=== PATIENT | male | born 1955 | race Caucasian/White ===

== ENCOUNTER 2019-12-03 09:49 | Observation (INO) ==
[2019-12-03] MEDS ORDERED: NiCARDipine HCL INJ 2.5 MG/ML 10 ML AMP ONE (10:16)
[2019-12-03] MEDS ORDERED: HEPARIN (PORCINE) 1000 UNIT/ML 10 ML (CATH LAB USE ONLY) ONE (10:16)
[2019-12-03] MEDS ORDERED: NITROGLYCERIN/D5W 100MCG/ML 20ML SYR ONE (10:17)
[2019-12-03] MEDS ORDERED: fentaNYL citrate 100 MCG/2 ML VIAL ONE (10:17)
[2019-12-03] MEDS ORDERED: MIDAZOLAM HCL 1 MG/ML 2ML VIAL ONE ×3 (10:17→11:42)
--- NOTE | 2019-12-03 10:24 | History & Physical Bridge Note ---
Date of Service December 03, 2019 History & Physical Bridge Note I have examined the patient, reviewed the History & Physical and in the interval since the performance of the History & Physical I have noted the following changes of clinical significance: no changes noted I have explained the risk benefit and intent of the procedure to the patient and he is willing to proceed.
[2019-12-03] MEDS ORDERED: SODIUM CHLORIDE 0.9% 1000ML 1,000 ML IV SCH ×2 (10:30→13:00)
--- NOTE | 2019-12-03 11:38 | Cardiac Catheterization ---
Date of Service December 03, 2019 Cardiac Cath Report Cardiac Cath Report Procedure: 1. Coronary angiography 2. Left heart catheterization 3. Left ventriculogram History: This is a 64-year-old male patient with a previous stent in the right coronary artery in 2011. He has done well until recently he has had increased shortness of breath with activity and chest discomfort. He underwent an exercise stress echocardiogram that was abnormal. And he was referred for cardiac catheter ization. Procedure summary: After informed consent was obtained the patient was brought to the cardiac catheterization lab. He was prepped and draped in the usual manner for a right transradial approach. Access was obtained to the right radial artery but the guidewire could not be advanced beyond the elbow and therefore the sheath was removed and a hemo-band placed. We then proceeded with a right transfemoral approach using a retrograde cylinder technique. Preformed 5 German diagnostic catheters were utilized for the coronary angiograms. A 5 German pigtail catheter was utilized for left heart pressures and for an LV gram. Following the procedure the patient underwent coronary intervention and then was admitted in stable condition. ACC data: Start time 10:47 AM End time 11:32 AM Opening aortic pressure 110/75 Left ventricular pressure 126/14 Closing aortic pressure 125/80 Sedation 2 mg of intravenous Versed IV fluid 90 cc normal saline Contrast 100 cc Optiray Fluoroscopy time 6.9 minutes Radiation 1139 mGy DAP 11,596 mGy/m Right dominant system AUC score 9 Coronary angiography: Selective injections of the left coronary artery reveal the left main trunk to be widely patent. The left circumflex artery consist of a first large marginal, a second large marginal and a third medium sized marginal branch. There are minor luminal irregularities of the left circumflex artery but it is widely patent. The LAD extends to the apex of the heart. The LAD gives off a large ramus branch and then several smaller diagonal branches distally. The LAD system is widely patent. Selective injections of the right coronary artery revealed to be dominant. In the distal portion of the right coronary artery there is evidence of her previous coronary stent and at the distal portion of this stent and into the grand traverse coronary artery there is restenosis of 80 to 90%. Left ventriculogram: There is mild hypokinesis of the basilar inferior myocardium with the remainder of the myocardium having normal contraction. The estimated left ventricular ejection fraction is around 50 to 55%. The aortic root and ascending aorta have normal morphology and diameter. Mitral valve is competent. Summary: The patient has in-stent restenosis as well as a high-grade stenosis just after the coronary stent in the distal right coronary artery. The remainder the coronary artery is widely patent. Left ventricular systolic function is preserved. Recommendations: The recommendation is for consideration of PCI and additional stent placement in the distal right coronary artery.
[2019-12-03] MEDS ORDERED: CLOPIDOGREL BISULFATE 300 MG TAB ONE (12:45)
[2019-12-03] MEDS ORDERED: NITROGLYCERIN SL 0.4 MG/TAB TAB SL PRN (12:57)
[2019-12-03] MEDS ORDERED: ACETAMINOPHEN 325 MG TAB PO PRN (12:59)
[2019-12-03] MEDS ORDERED: ONDANSETRON INJ 2 MG/ML 2 ML VIAL IV PRN (12:59)
--- NOTE | 2019-12-03 14:38 | Post Operative Brief Note ---
Cardiology Brief Post Op Date of Surgery December 03, 2019 Pre & Post Diagnosis Operation Date: 12/03/19 11:00 <No data on this case meets the specified criteria> Procedure PCI RCA Central Supply Assistant Michael Jasso MD Milling Machine Operator Ankur Estimated Blood Loss 15 Findings Consistent with Post-Op Diagnosis Successful PCI to distal in-stent restenosis with one DOMENICO (2.75 x 26 [place]) overlapping distal aspect of prior stent and extending into R-PDA - Angioplasty of R-posterior AV branch ostium across stent struts. Successful PCI of proximal RCA with single DOMENICO ( 3.5 x 12 [place]; post-dilated with 4.0 NC). Complications none Disposition Disposition: PCU
--- NOTE | 2019-12-03 17:41 | Cardiac Catheterization ---
[facility] Data: Upsetter Setter Up Cardiac Status Clinical evaluation leading to the procedure CAD Presenation: Unstable angina Anginal Classification: CCS III Heart Failure: No Cardiogenic Shock within 24 Hours: No Cardiac Arrest within 24 Hours: No Imaging Studies Past 6 Months: Yes Stress Studies Past 6 Months: No Diagnostic Physicians Name: Michael Jasso MD Status: Elective Closure Device Percutaneous Entry Location: Radial Closure Device: Radial Band Recommendations: PCI without planned CABG PCI Indication: Unstable Angina Lesion Segment Name: distal RCA Culprit Artery: Yes Stenosis Prior to Rx (%): 80 Chronic Total Occlusion: No IVUS: No FFR: No Pre-Procedure PAUL Flow: 3 Previously Treated Lesion: Treated with Stent: Yes In-Stent Restenosis: Yes In- Stent Thrombosis: No Stent Type: DOMENICO Yes Lesion Complexity: High/C Lesion Length (mm): 23 Thrombus Present: No Bifurcation Lesion: Yes Guidewire Across Lesion: Stenosis Post-Procedure (%): 0 Post-Procedure PAUL Flow: 3 Devices(s) Deployed: Yes Yes Intraprocedure Events Significant Disection: No Perforation: No Cardiac Cath Procedure Full Procedure Date December 03, 2019 Pre-Procedure Diagnosis Pre-Procedure Diagnosis: Angina AUC Score AUC Score: 7 Post-Procedure Diagnosis Post-Procedure Diagnosis: Severe CAD and Successful PCI Procedure(s) Performed Procedure(s) Performed: PTCA, Drug Eluting Stent and Femoral Artery Angiography Group Therapy Counselor Michael Jasso MD Biomathematician(s) Ankur Estimated Blood Loss Estimated Blood Loss: 15 Medication(s) Medication(s): Clopidogrel, Fentanyl, Heparin, Lidocaine 1%, Nicardipine, Nitroglycerin and Versed Summary of Findings Indication: Accelerating angina, history of coronary disease post prior DOMENICO to distal RCA Access: 6 Fr right common femoral artery Catheters: JR4 guide Findings: For full details of patient's coronary angiography please cath report dictated by Dr. Vargas. Briefly, patient found to have severe single vessel disease with 80% distal RCA in-stent restenosis. Decision to proceed with PCI. -- PCI -- Antithrombotic therapy: Heparin, clopidogrel Procedure: RCA cannulated with JR4 guide BMW wire passed across lesion into distal vessel Distal RCA lesion predilated with 2.5 compliant balloon Dilated lesion stented with 2.75 x 26 mm [place] drug-eluting stent overlapping distal aspect of prior stent and extending into PDA. 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 Arterial Closure: Angio-Seal Summary: 1. Successful PCI of distal RCA in-stent restenosis with single drug-eluting stent (2.75 x 26 mm Alberto) overlapping distal aspect of prior stent and extending into right PDA. -Right posterior AV branch ostium/stent struts dilated with 2.0 balloon 2. 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 Any exceptions are noted below. [facility] Card Cath Procedure Codes Moderate Sedation Procedure 1: Sedation/Anesthesia: 45826 Mod Sedation by a different physician ;Init15 Min Child Age 5&Up Procedure 2: Sedation/Anesthesia: 55657 Mod Sedation by a different physician;Ea Additional 15 Minutes Angioplasty Procedure 1: Cardiovascular Angioplasty Procedures: 94516 PTCA; ea addl branch of a major cor art RC LC LD Stenting Procedure 1: Cardiovascular Stent Procedures: 70756 Perc transcatheter placement of intracoronary stent(s), with ang PG Care Time/CCT Total # of Minutes Spent Total Time Spent with Patient: Total time spent is greater than 50% in coordination of care (as documented) at patient's floor/unit and/or counseling patient:
--- NOTE | 2019-12-03 17:45 | Electrocardiogram Report ---
Test Reason : Blood Pressure : / mmHG Vent. Rate : 063 BPM Atrial Rate : 063 BPM P-R Int : 200 ms QRS Dur : 086 ms QT Int : 452 ms P-R-T Axes : 062 -09 -30 degrees QTc Int : 462 ms Normal sinus rhythm Inferior infarct , age undetermined Abnormal ECG When compared with ECG of 24-JUL-2018 06:16, Inferior infarct is now Present Nonspecific T wave abnormality no longer evident in Anterolateral leads Confirmed by Michael Oneal ([id number]) on 12/03/2019 5:44:33 PM Referred By: Popeye Clark Confirmed By:Jesus Oneal
[2019-12-04 05:50] LABS: Basophils # (auto) 0.03 K/uL (0-0.2); Basophils % (auto) 0.4 %; Eosinophils # (auto) 0.22 K/uL (0-0.5); Eosinophils % (auto) 3.2 %; Hematocrit (blood only) 44.8 % (42-52); Hemoglobin 15.7 g/dL (14.0-18.0); Immature Granulocytes # (auto) 0.02 K/uL (0.00-0.02); Immature Granulocytes % (auto) 0.3 %; Lymphocytes # (auto) 1.69 K/uL (1.2-3.4); Lymphocytes % (auto) 24.4 %; Mean Corpuscular Hemoglobin 33.6 pg (25-34); Mean Corpuscular Volume 95.9 fL (80-100); Mean Platelet Volume 10.4 fL (7.4-10.4); Monocytes # (auto) 0.69 K/uL (0.11-0.59); Neutrophils # (auto) 4.27 K/uL (1.4-6.5); Neutrophils % (auto) 61.7 %; Platelet Count 153 K/uL (130-400); RDW Coefficient of Variation 13.1 % (11.5-14.5); RDW Standard Deviation 45.6 fL (36.4-46.3); Red Blood Count 4.67 M/uL (4.7-6.1); White Blood Count 6.92 K/uL (4.8-10.8)
[2019-12-04 06:24] LABS: BUN Creatinine Ratio 13.7 (10-20); Calcium 8.6 mg/dl (8.5-10.1); Creatinine Clr Calc Pharmacy 74.5 ml/min; Est GFR (African American) 85.9; Est GFR (Non-African American) 74.1; Potassium 4.1 mmol/L (3.5-5.1)
[2019-12-04 08:19] VITALS: BP 149/89; PULSE 97; TEMP 99.3; O2SAT 94
[2019-12-04] MEDS ORDERED: ENOXAPARIN INJ 40 MG/0.4 ML SYR SQ SCH (09:00)
[2019-12-04] MEDS ORDERED: ISOSORBIDE MONO EXTENDED REL 30 MG TABCR PO SCH (09:00)
[2019-12-04] MEDS ORDERED: CLOPIDOGREL BISULFATE 75 MG TAB PO SCH (09:00)
[2019-12-04] MEDS ORDERED: ASPIRIN 81 MG ECTAB PO SCH (09:00)
--- NOTE | 2019-12-04 09:45 | Discharge Summary ---
Date of Service December 04, 2019 Admission HPI Per Admitting Provider The patient was admitted to undergo cardiac catheterization due to new onset angina. He received coronary stents within the right coronary artery and was admitted for observation overnight. Admission Exam Per Admitting Provider General: no acute distress and stated age Head: normocephalic, no masses, lesions, tenderness or abnormalities Eyes: conjunctiva are pink and non-injected, sclera clear Neck: supple, no adenopathy, no bruits, normal jugular venous pulse, no hepatojugular reflux Chest: normal shape and normal respiratory effort Lungs: clear to auscultation and percussion Cardiac Exam: - regular rate & rhythm, no murmurs gallops or rubs - normal S1, normal S2 Pulses: 2(+) throughout Abdomen: abdomen soft, non-tender, no abnormal masses and no hepatosplenomegaly Musculoskeletal: no gait disturbance, no joint inflammation, no deforming arthritis Extremities: no edema and no cyanosis Neuro: grossly normal exam Principal Diagnosis PCI with coronary stent placement Discharge Exam The exam is unchanged. The cath site is clean and dry without hematoma. Discharge Data Allergies Allergy/AdvReac Type Severity Reaction Status Date / Time Odjznhf-Bbc-Mim Reductase Allergy Muscle Pain Verified 12/03/19 09:25 Inhibitor heparin AdvReac Unknown Edema.LEFT Verified 12/03/19 09:25 LEG SWELLING lisinopril AdvReac Unknown Cough. Verified 12/03/19 09:25 ezetimibe [From Zetia] AdvReac Muscle Pain Verified 12/03/19 09:25 Consultations 12/03/19 13:00 Consult Cardiac Rehabilitation Routine Procedures Performed Operation Date: 12/03/19 11:00 Actual Procedures p Drug Eluting Stent SGl Vessel - Cornell Jasso MD s Cineradiography w/Routine Exam - Tal Vargas DO s Cath, Left with Cors and Vent - Tal Vargas DO s POBA SGL Vessel - Cornell Jasso MD Ordered Studies 12/03/19 06:55 CL Cath Imgs for PACS use only Routine Hospital Course (1) CAD (coronary artery disease): (2) Status post primary angioplasty with coronary stent: The patient was admitted for observation overnight following stent placement. He had an uneventful night and is ready for discharge. Total Time Total Time Spent Total Time Spent (In Minutes): Total time spent less than 30 minutes. Discharge Plan Discharge Items Patient Disposition: Home - Self-Care Reason For Visit: POST PCI Discharge Diagnosis: Coronary artery disease post coronary stent Activity: Resume your previous activity Non-emergency contact: Senior Planning Manager Call non-emergency contact if: you have any medication questions, your symptoms worsen, your pain is not controlled, your pain is worsening, your pain is unusual for you, your pain is concerning for you, you have a fever, your temperature is above 101, your wound has increased redness, your wound has increased drainage and your wound pain has increased Follow-up/Referrals: Felix Welelr, [Primary Care Provider] - Diet: Heart Healthy Addtl Attending Provider Instructions: ACTIVITY RECOMMENDATIONS: Excess manipulation of the wrist should be avoided for the next 24-48 hours. * No lifting over 2 pounds (approximately a 1/2 gallon of milk) with the util ized arm for 24 hours. * No strenuous activity such as bowling or tennis for 3 days. * Keep the site of the procedure covered with a bandage for 24 hours. *You may shower the day after the procedure. Do not take a tub bath or submerge the puncture site in water for the next 3 days. *Do not operate any motorized equipment for 3 days. SPECIAL CARE INSTRUCTIONS: The site may be slightly bruised and sore following your procedure. Should any of the following occur, contact the Dr. who performed your procedure. 1. Redness/inflammation, swelling, chills, or fever, or colored drainage at procedure site within 3-7 days after your procedure. 2. Coldness, discoloration, ongoing numbness, severe pain, or swelling. Expect mild tingling of hand and tenderness at the puncture site for up to three days. If this persists beyond three days, or other symptoms develop, notify the Dr. who performed your procedure. BLEEDING: If the procedure site on your wrist begins to bleed, do not panic 1. Place 1 or 2 fingers firmly just slightly above the insertion site to stop the bleeding. You may be able to feel your pulse as you hold pressure. 2. Lift your finger after 5 minutes to see if the bleeding has stopped. 3. Once the bleeding has stopped, gently wipe the wrist area clean with a bandage. * If the bleeding from your wrist does not stop after 10 minutes, or if there is a large amount of bleeding or spurting, call 911 (do not drive yourself to the hospital). SKIN IRRITATION: * You may experience some redness and/or swelling in the area where radiation was administered. If any skin irritation occurs, please contact your family physician. FOLLOW UP VISIT: Keep any scheduled doctor appointments. Pending Studies at Discharge: No Stand-Alone Forms: [facility] [place], Smoking Cessation Medications and DC Order Prescriptions: New clopidogrel 75 mg Tablet 75 mg PO QAM Qty: 30 RF: 12 Continued aspirin [Aspir-81] 81 mg Tablet,Delayed Release (Dr/Ec) 81 mg PO DAILY RF: 0 omega-3 acid ethyl esters 1 gram Capsule 2 cap PO DAILY RF: 0 magnesium oxide 400 mg (241.3 mg magnesium) Tablet 250 mg PO DAILY RF: 0 nitroglycerin 0.4 mg Tablet, Sublingual 0.4 mg sublingual DAILY PRN (Reason: Chest Pain) RF: 0 isosorbide mononitrate 30 mg Tablet Extended Release 24 Hr 30 mg PO DAILY RF: 0 Discharge Orders: Discharge Order (Routine); Ordered 12/04/19 Ordered By: Tal Vargas Admission Data Admit Date/Time: 12/03/19 12:55 Attending Provider: Tal Vargas Admit Provider: Cornell Jasso Primary Care Provider: Felix Weller
== END 2019-12-04 11:14 | disposition home or self-care (01) ==
LOC: 2S 09:49 → CC 09:49
DX: F17.200 Nicotine dependence, unspecified, uncomplicated; I10 Essential (primary) hypertension; Z88.8 Allergy status to other drugs, medicaments and biological substances; Z86.007 Personal history of in-situ neoplasm of skin; M51.37 Other intervertebral disc degeneration, lumbosacral region; Z95.5 Presence of coronary angioplasty implant and graft; K21.0 Gastro-esophageal reflux disease with esophagitis; I25.110 Atherosclerotic heart disease of native coronary artery with unstable angina pectoris; F12.10 Cannabis abuse, uncomplicated; I25.2 Old myocardial infarction; E78.5 Hyperlipidemia, unspecified

== ENCOUNTER 2025-04-27 05:23 | Observation (INO) ==
--- NOTE | 2025-04-08 12:00 | PAT Medication Instructions ---
Medication Instructions Date of Service April 08, 2025 Home Medications nitroglycerin 0.4 mg sublingual tablet 0.4 mg sublingual .EVERY 5 MIN PRN Chest Pain amlodipine 5 mg tablet 5 mg PO QAM aspirin 81 mg tablet,delayed release 81 mg PO QAM cholecalciferol (vitamin D3) 10 mcg (400 unit) chewable tablet (Vitamin D3) 10 mcg PO DAILY Continue as directed nitroglycerin 0.4 mg sublingual tablet 0.4 mg sublingual .EVERY 5 MIN PRN Chest Pain (if needed) ASK your prescriber and surgeon aspirin 81 mg tablet,delayed release 81 mg PO QAM DO NOT take the morning of surgery cholecalciferol (vitamin D3) 10 mcg (400 unit) chewable tablet (Vitamin D3) 10 mcg PO DAILY Take morning of surgery With a small sip of water, OTHERWISE NOTHING TO EAT OR DRINK AFTER MIDNIGHT: amlodipine 5 mg tablet 5 mg PO QAM Other Notes If you have any questions please call us at [phone] or [phone] or [phone] or [phone]
--- NOTE | 2025-04-13 09:16 | Anesthesiology Consultation ---
Date of Service April 13, 2025 Assessment & Plan (1) Encounter for pre-operative examination: - Infectious disease screening: Per assessment on 04/13/25- No known recent infectious disease contacts or current infectious disease symptoms. - Outpatient joint assessment: Pt currently scheduled for inpatient pathway. If surgeon requests review for outpatient joint pathway, patient is not recommended candidate for outpatient joint program from anesthesia standpoint based on available information - Cardiology visit (10/21/24): "Coronary artery disease with infrequent nitroglycerin use (twice a year) for chest discomfort. No recent increase in nitroglycerin use. Blood pressure improved during the visit. Echocardiogram in July showed mildly enlarged ascending aorta (4.1 cm) with normal heart function. Discussed long-acting nitroglycerin; patient prefers current regimen and will report any increase in use.. Continue amlodipine.. Continue baby aspirin.. Monitor and report nitroglycerin use.. Hypertension managed with amlodipine. Blood pressure improved to 140/72 during the visit.. Patient is generally well and active within limits, engaging in activities such as plowing and shoveling." - PCP visit (02/09/25): "No chest pain for him but with SOB will do workup to make sure he is cleared for surgery. Check CT considering pain and sent to surgery for hernia. I do not feel this should get in the way of his cataract surgery though. Addendum: Testing for acute problems clear. Pt Cleared for planned procedure with low likelihood of elmer-operative complications." > Subsequent cataracts surgery [facility] without issue per patient. Chart Review Chart Review: Acceptable Risk for Surgery and Patient seen in Pre Admission Testing Teaching & Discussion Pre-Anesthesia Teaching/Discussion Notes: Instructed NPO after midnight before surgery,except medications with 15 cc of water. Medication instructions provided according to the PAT guidelines. History Surgery Operation Date: 04/27/25 10:40 Proposed Procedures p Right Total Knee Arthroplasty - Yuval Garcia MD Height/Weight Height: 5 ft 7 in Weight: 102.9 kg Allergies Allergy/AdvReac Type Severity Reaction Status Date / Time Gostzyi-VJH-FeF Reductase Allergy Intermediate Muscle Pain Verified 04/06/25 10:22 Inhibitor [Dctpdzh-Xpn-Xhv Reductase Inhibitor] ezetimibe [From Zetia] AdvReac Intermediate Muscle Pain Verified 04/06/25 10:22 heparin AdvReac Unknown Edema, Verified 04/12/25 10:19 left leg swelling lisinopril AdvReac Unknown Cough Verified 04/12/25 10:19 Medications Home Medications Medication Instructions Recorded Confirmed Last Taken nitroglycerin 0.4 mg sublingual 0.4 mg sublingual .EVERY 5 MIN PRN 12/03/19 04/06/25 Unknown tablet Chest Pain amlodipine 5 mg tablet 5 mg PO QAM 09/13/23 04/06/25 Unknown aspirin 81 mg tablet,delayed 81 mg PO QAM 09/13/23 04/06/25 Unknown release cholecalciferol (vitamin D3) 10 10 mcg PO DAILY 04/06/25 04/06/25 Unknown mcg (400 unit) chewable tablet (Vitamin D3) Past Medical History Medical History (Updated 04/13/25 @ 09:45 by Almita Arimjo) CAD (coronary artery disease) 2011- PCI RCA with DOMENICO 2019- PCI of dRCA with DOMENICO overlapping the distal aspect of prior stent and e xtending into right PDA + PCI pRCA with DOMENICO Follows with [facility] GERD (gastroesophageal reflux disease) HTN (hypertension) Hx of acute myocardial infarction 2011 Hyperlipidemia Osteoarthritis Spinal stenosis Statin intolerance Exercise / Class Metabolic Activity III < 4 Walking/Shop/Light housework Past Family History Family History Mother Coronary heart disease Father Alcohol abuse Grandfather , at 65 Myocardial infarction Brother Cancer Brother , " in assisted No problems noted. Other No pertinent family history Past Surgical History Surgical History H/O heart artery stent History of adenoidectomy History of cardiac cath 2011- PCI RCA with DOMENICO 2019- PCI of dRCA with DOMENICO overlapping the distal aspect of prior stent and extending into right PDA + PCI pRCA with DOMENICO History of cataract surgery R/L History of colonoscopy History of tonsillectomy History of tooth extraction Past Anesthesia History No Hx of Anesthesia Complications and No Family Hx of Anesthesia Complications History of PONV No Hx of PONV and No Hx of Motion Sickness Social History Smoking Status: Former smoker tobacco type: cigarettes Do You Dip or Chew Tobacco: No Smoking End Date: 12/2024 Hx Alcohol Use: Yes (Hx Alcohol abuse listed per records) Alcohol type: hard liquor alcohol intake frequency: a few times a week Hx Substance Use: Yes substance use type: marijuana (few times per week ("not card")) Review of Systems Patient denies chest pain, shortness of breath, dyspnea on exertion, fever, chills, cough, wheezing, palpitations. Physical Exam Vital Signs BP 134/73 P 60 TEMP 97.9 SP02 95%RA RESP 16 Physical Full cervical extension range of motion. Full TMJ range of motion. TMD > 3.5 finger breaths Mallampati Score III Dentition: lower 6 teeth remaining, upper full plate, lower partial Lungs: clear throughout to auscultation Cardiac: regular rate and rhythm, no murmurs noted Spine: normal Carotid arteries: negative bruit Extremities: no LE edema Lab Results Anesthesia Preop Results Results Anesthesia Widget: WBC 7.03 K/ul (4.8-10.8) 04/13/25 Hgb 15.1 g/dl (14.0-18.0) 04/13/25 Hct 42.5 % (42.0-52.0) 04/13/25 Plt 201 K/uL (130-400) 04/13/25 Na 138 mmol/L (136-145) 04/13/25 K 4.4 mmol/L (3.5-5.1) 04/13/25 Cl 105 mmol/L (98-107) 04/13/25 CO2 25 mmol/L (21-32) 04/13/25 BUN 12 mg/dl (6-23) 04/13/25 Creat 1.10 mg/dl (0.6-1.4) 04/13/25 Glucose Level 101 mg/dl (70-99(Fasting)) H 04/13/25 PT 11.2 Seconds (9.0-12.0) 04/13/25 PTT 29 Seconds (21-31) 04/13/25 INR 1.0 (0.9-1.1) 04/13/25 Blood Type B Positive 04/13/25 Antibody Screen NEGATIVE 04/13/25 Testing Electrocardiogram Date: 10/21/24 Sinus rhythm. PACs. 77 bpm. Nonspecific T wave abnormality. Chest X-Ray Date: 02/09/25 No acute focal consolidation. Pulmonary edema. No pneumothorax or pleural effusion observed. Unremarkable cardiomediastinal silhouette. No acute osseous abnormality. Echocardiogram Date: 07/09/24 LVEF 55-59%. LV wall motion is normal. Mildly increased concentric LV wall thickness. Moderate AR. Mildly enlarged aortic root (4.1 cm. Proximal ascending thoracic aorta is mildly enlarged, 4.1 cm. No significant interval change compared to prior study dated 05/22/2023 per report. Stress Test Date: 05/15/21 Type: exercise The stress echo demonstrates a fixed wall motion abnormality without ischemia. Exercise capacity is average. Blood pressure response to exercise was hypertensive. Stress EKG showed no evidence of ischemia. Occasional PVCs noted with stress. The inferior and inferior septal wall is hypokinetic at the base and mid level at rest and does not change with stress. All other marcano contract normally at stress and rest. 7.5 METS. 85% MPHR. LVEF 50-54%. Mildly increased concentric LV wall thickness. Mildly enlarged aortic root. Mild to moderate AI. Cardiac Catheterization Date: 12/03/19 Summary: 1. Successful PCI of distal RCA in-stent restenosis with single drug-eluting stent (2.75 x 26 mm Alberto) overlapping distal aspect of prior stent and extending into right PDA. -Right posterior AV branch ostium/stent struts dilated with 2.0 balloon 2. 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
[2025-04-27] MEDS: ACETAMINOPHEN 500 MG TAB PO SCH ×2 (05:42→10:45)
[2025-04-27] MEDS: dexAMETHasone**PF** 10 MG/ML VIAL IV SCH (05:42)
[2025-04-27] MEDS: CeleBREX 200 MG CAP PO SCH (05:43)
[2025-04-27] MEDS: FAMOTIDINE 20 MG TAB PO SCH (05:43)
[2025-04-27] MEDS: METOCLOPRAMIDE HCL 10 MG TABLET PO SCH (05:44)
[2025-04-27] MEDS: LR 60ML/HR IV SCH (05:44)
[2025-04-27] MEDS: LR 500ML BOLUS, THEN 15ML/HR IV SCH (05:45)
[2025-04-27] MEDS ORDERED: LIDOCAINE 2% 2 ML VIAL/AMP(20MG/ML) INFIL ONE (06:10)
[2025-04-27] MEDS ORDERED: fentaNYL citrate PF 100 MCG/2 ML VIAL ONE ×2 (06:10→07:34)
[2025-04-27] MEDS ORDERED: MIDAZOLAM HCL 1 MG/ML 2ML VIAL ONE (06:10)
[2025-04-27] MEDS ORDERED: PROPOFOL IV EMULSION 10 MG/ML 20 ML VIAL IV ONE (06:11)
[2025-04-27] MEDS ORDERED: ONDANSETRON INJ 2 MG/ML 2 ML VIAL ONE (06:11)
[2025-04-27] MEDS ORDERED: ROPIVACAINE 0.5% 5 MG/ML 30 ML VIAL ONE (06:22)
[2025-04-27] MEDS ORDERED: BUPIVACAINE 0.5 % 5 MG/1 ML PF 10ML VIAL ONE (06:22)
--- NOTE | 2025-04-27 06:46 | History & Physical Bridge Note ---
Date of Service April 27, 2025 History & Physical Bridge Note I have examined the patient, reviewed the History & Physical and in the interval since the performance of the History & Physical I have noted the following changes of clinical significance: no changes noted
[2025-04-27] MEDS: ceFAZolin 2000MG 2,000 MG/15 ML SYR IV SCH ×2 (07:15→14:14)
[2025-04-27] MEDS ORDERED: HYDROmorphone INJ 2 MG/ML SYR/VIAL ONE (07:18)
[2025-04-27] MEDS ORDERED: METOCLOPRAMIDE HCL INJ 5 MG/ML 2 ML VIAL ONE (07:24)
[2025-04-27] MEDS: ORTHO JOINT ANESTHETIC ONE (07:41)
[2025-04-27] MEDS: ROPIV 0.5% 246mg, Ketorolac 30mg, EPINEPHrine 0.5mg in NSS INFIL SCH (07:41)
[2025-04-27] MEDS ORDERED: fentaNYL citrate PF 100 MCG/2 ML VIAL IV PRN (07:43)
[2025-04-27] MEDS ORDERED: ATROPINE SULFATE 0.1 MG/ML 10ML SYR IV PRN (07:43)
[2025-04-27] MEDS ORDERED: ePHEDrine sulfate 50 MG/ML AMP IV PRN (07:43)
[2025-04-27] MEDS ORDERED: HYDROmorphone INJ 2 MG/ML SYR/VIAL IV PRN (07:43)
[2025-04-27] MEDS ORDERED: PROMETHAZINE HCL 6.25 MG in SODIUM CHLORIDE 0.9% 50 ML IV PRN (07:43)
[2025-04-27] MEDS ORDERED: ONDANSETRON INJ 2 MG/ML 2 ML VIAL IV PRN ×2 (07:43→10:06)
[2025-04-27] MEDS: TRANEXAMIC ACID 1,000 MG **IV Intra-op IV SCH (08:06)
--- NOTE | 2025-04-27 09:06 | Operative Report ---
PG Post Operative Report Pre & Post Diagnosis Operation Date: 04/27/25 07:00 Pre-Op Diagnosis: Osteoarthritis Knee Right Post-Op Diagnosis: Osteoarthritis Knee Right I identified the patient and participated in the time-out.: Yes Procedure Operation Date: 04/27/25 07:00 Actual Procedures p Right Total Knee Arthroplasty(Right) - Yuval Garcia MD Surgeon Yuval Garcia MD Green Chain Offbearer Faheem Grace PA-C Estimated Blood Loss 50 Findings Consistent with Post-Op Diagnosis Specimens Right knee sent for pathology. Anesthesia Type General Regional Complications none Disposition Accompanied Patient To Recovery: No Indications Patient is a 70-year-old gentleman with a long history of bilateral knee pain discomfort right side greater than left. Been through extensive conservative treatment which became less successful over time. X-rays show advanced bilateral knee DJD. He elected proceed with right total knee arthroplasty. Description of Procedure Operative implants consist of: 1. Biomet Vanguard size 67.5 right posterior stabilized femoral component. 2. Biomet size 75 tibial tray. 3. 12 mm posterior stabilized polyethylene insert. 4. 31 x 8 all poly patella. The patient was taken to the op room, identified, placed on the operating table in the supine position. All contact areas were appropriately padded. IV antibiotics were provided by the anesthesia team. A spinal anesthetic was attempted in the holding area but unsuccessful. He did have an adductor canal block. A general anesthetic was implemented. A right thigh tourniquet was then placed to the right lower extremity was then prepped and draped in usual sterile fashion. The right leg was elevated and exsanguinated with use of an Esmarch and a turn was placed at 300 mmHg. An anterior approach of the right knee was then performed to longitudinal incision centered over the patella. Sharp dissection was carried through subcutaneous tissue down the extensor mechanism. A medial parapatellar arthrotomy incision was then made. Some subperiosteal dissection was carried out medially. The fat pad was resected from the patella tendon. The lateral patellofemoral ligament was released. The patella was subluxated laterally and the knee was flexed. The osteophytes taken off distal femur. The ACL and PCL were then released from distal femur the tibia subluxated anteriorly. The external treatment LYMErix then placed on the anterior face the tibia and adjusted 14 mm medially. The proximal tibial cut was made to remove about 2 mm of bone from medial side. Some osteophytes taken off medially. The tibia was then sized to a size 75. Attention drawn the femur. The distal femur was then with a sharp drill. Intramedullary canal was suction. A right 6 degree valgus cutting guide was placed. The distal femoral cutting block was pinned in place. This femoral cut was made taking additional 3 mm of bone off distal femur. The femur was then sized to a size 67.5. The AP cutting block was pinned parallel to the epicondylar axis which was 4 degrees of external rotation. The anterior cut, anterior chamfer, posterior cut, posterior chamfer cuts were made. The box cutting guide was placed and just slightly lateral and the box cut was made. The knee was flexed. The remnants of the medial and lateral menisci were excised. The osteophytes taken off the posterior aspect of femur. A trial femoral component was placed. The tibial tray was pinned in Kell external rotation and the drill and stem points were used. Defect in proximal tibia for the tibial tray. Knee was then trialed and the 12 mm insert fit most appropriately. Attention drawn the patella. The patella was cleaned of all soft tissues. Patella thickness measured 22 mm in thickness was cut down to 13. Was sized to a size 31 patella. The lug holes were drilled for 31 patella. The lateral osteophytes removed. Patella button was placed. Knee was taken through range of motion and the patella tracked ellen spike with no thumbs test. Attention jointer placed in permanent components. NuPrep all trial components were removed. Bone plug was placed in the distal femur limit blood loss. A double batch [place] G cement was mixed. A Biomet Vanguard size 67.5 right posterior stabilized femoral component, size 75 tibial tray, a 12 mm posterior stabilized polyethylene insert, and a 31 x 8 all poly patella then cemented in place. The knee was brought out into full extension till cement hardened. Final cement check was then performed. The pericapsular tissues were injected with total of 100 cc of Ortho mix. Patient did receive 1 g tranexamic acid. The tourniquet was then let down for final tourniquet time 62 minutes. Hemostasis surgeries electrocautery. Extensor Meclomen closed with combination 1 PDS suture #1 Vicryl suture in a [id number] fashion. Extensor mechanism was checked and found to be intact. Subcutaneous tissue was then closed with 2 Dexon suture in a buried interrupted fashion the skin was closed skin gurjit. Leg was then cleaned and dried and a sterile dressing with Xeroform, 4 fours, sterile cast padding, Rivas bandage were applied. The patient was then brought out of general anesthesia. Patient then transferred to the recovery room in stable condition. Patient tolerated procedure well and there are no complications. Faheem Grace, my physician title assistant, was present for the entire procedure. His assistance was required for proper patient positioning, prepping and draping, surgical exposure, retraction, perform the technical details of the operation, placement of the hardware, closure of the incision site, and placement of postoperative sterile bandage. I attest to the content of the Intraoperative Record and any orders documented therein. Any exceptions are noted below.
--- NOTE | 2025-04-27 09:31 | XRay Report ---
XR knee RT 1 or 2V routine CLINICAL HISTORY: Surgical Post Op COMPARISON: 04/27/2025 FINDINGS: Right knee prosthesis shows no hardware complication. There is expected soft tissue gas. S kin gurjit are present. IMPRESSION: Unremarkable postoperative exam. ACT 112: Negative or not required by law. Electronically signed by: Brodie Faye M.D. 04/27/2025 9:30 AM
[2025-04-27] MEDS ORDERED: oxyCODONE HCL IR 5 MG TAB (IMMEDIATE RELEASE) PO PRN (10:06)
[2025-04-27] MEDS ORDERED: HYDROmorphone INJ 0.5 MG/0.5 ML SYR IV PRN (10:06)
[2025-04-27] MEDS ORDERED: METOCLOPRAMIDE HCL INJ 5 MG/ML 2 ML VIAL IV PRN (10:06)
[2025-04-27] MEDS ORDERED: bisacodyL 10 MG SUPP PR PRN (10:06)
[2025-04-27] MEDS ORDERED: MAGNESIUM HYDROXIDE SUSP 30 ML UDC PO PRN (10:06)
[2025-04-27] MEDS ORDERED: ALUMINUM/MAGNESIUM SUSP 30 ML UDC PO PRN (10:06)
[2025-04-27] MEDS ORDERED: NITROGLYCERIN SL 0.4 MG/TAB TAB SL PRN (10:06)
[2025-04-27] MEDS ORDERED: NALOXONE HCL 0.4 MG/1 ML VIAL/CARP IV PRN (10:06)
[2025-04-27] MEDS ORDERED: SENNA 8.6 MG TAB PO SCH (10:06)
--- NOTE | 2025-04-27 10:31 | Anesthesiology Progress Note ---
Date of Service April 27, 2025 Anesthesia Post Procedure Vital Signs Vital Signs: Temp Pulse Pulse Resp BP Pulse Ox O2 Del Method 04/27/25 10:08 36.3 C L 74 16 128/70 94 Nasal Cannula 04/27/25 10:08 Nasal Cannula 04/27/25 09:46 81 12 141/84 H 94 Nasal Cannula 04/27/25 09:40 36.6 C 71 12 121/68 93 Nasal Cannula 04/27/25 09:30 80 19 153/80 H 93 Oxymask 04/27/25 09:20 80 14 151/80 H 94 Oxymask 04/27/25 09:10 82 13 126/67 94 Oxymask 04/27/25 09:04 36.0 C L 83 19 168/78 H 89 L Oxymask 04/27/25 05:37 36.7 C 81 20 145/95 H 95 Room Air O2 Flow Rate 04/27/25 10:08 4 04/27/25 10:08 4 04/27/25 09:46 4 04/27/25 09:40 2 04/27/25 09:30 4 04/27/25 09:20 4 04/27/25 09:10 4 04/27/25 09:04 4 04/27/25 05:37 Transfer of Care Handoff Completed per policy Notes Mental Status: alert / awake / arousable and participated in evaluation Patient Amnestic to Procedure: Yes Nausea / Vomiting: adequately controlled Pain: adequately controlled Airway Patency, RR, SpO2: stable & adequate BP & HR: stable & adequate Hydration State: stable & adequate Anesthetic Complications: no major complications apparent
[2025-04-27] MEDS: SODIUM CHLORIDE 0.9% 1,000 ML IV SCH (10:43)
[2025-04-27] MEDS: KETOROLAC TROMETHAMINE 15 MG/ML VIAL IV SCH (10:46)
[2025-04-27] MEDS: DOCUSATE SODIUM 100 MG CAP PO SCH (10:46)
[2025-04-27] MEDS: TAMSULOSIN HCL 0.4 MG CAP PO SCH (10:47)
[2025-04-27] MEDS: MULTIVITAMIN TAB PO SCH (10:47)
[2025-04-27] MEDS: CHOLECALCIFEROL 10 MCG (400 UNITS) TAB PO SCH (10:47)
[2025-04-27] MEDS: amLODIPine BESYLATE 5 MG TAB PO SCH (11:21)
[2025-04-27] MEDS: ASPIRIN 81 MG ECTAB PO SCH (11:21)
[2025-04-27] MEDS: TRANEXAMIC ACID / 0.7% NACL 1,000 MG/100 ML BAG IV SCH (14:14)
[2025-04-27] MEDS: ASCORBIC ACID 500 MG TAB PO SCH (17:10)
[2025-04-27] MEDS: SENNA 8.6 MG TAB PO SCH (22:13)
[2025-04-28 06:35] LABS: Hematocrit (blood only) 39.4 % (42.0-52.0); Hemoglobin 13.8 g/dl (14.0-18.0); Mean Corpuscular Volume 94.3 fL (80.0-100.0); Mean Platelet Volume 10.5 fL (9.4-12.4); Platelet Count 199 K/uL (130-400); RDW Coefficient of Variation 13.4 % (11.5-14.5); RDW Standard Deviation 46.5 fL (36.4-46.3); Red Blood Count 4.18 M/uL (4.70-6.10); White Blood Count 16.76 K/ul (4.8-10.8)
[2025-04-28 07:02] LABS: BUN Creatinine Ratio 17.5 (10-20); Calcium 8.8 mg/dl (8.6-10.3); Creatinine Clr Calc Pharmacy 61.8 ml/min; Potassium 4.7 mmol/L (3.5-5.1)
[2025-04-28 07:13] VITALS: BP 122/80; PULSE 79; RESP 16; TEMP 97.7; O2SAT 93
[2025-04-28] MEDS: dexAMETHasone 10 MG in SYRINGE 0 ML IV SCH (08:50)
--- NOTE | 2025-04-28 10:05 | Orthopedic Progress Note ---
Date of Service April 28, 2025 Assessment & Plan (1) Status post right knee replacement: Plan: 70-year-old gentleman postop day 1 from right knee replacement doing pretty well. Pain is controlled. He is neurologically intact. Hoping to go home today. Plan: 1. DVT prophylaxis including thigh-high teds, SCDs, aspirin twice a day. 2. PT/OT. Weight-bear as tolerated. Right total knee protocol. 3. Pain control. Doing well with current pain regimen. 4. Disposition. Plan to add discharge to home with some home health after therapy today. (2) HTN (hypertension): (3) HLD (hyperlipidemia): (4) Tobacco abuse: (5) Alcohol abuse: (6) CAD (coronary artery disease): Admission and Anticipated Discharge Date Admission Date: April 27, 2025 Subjective 70-year-old gentleman postop day 1 from right knee replacement. Is doing pretty well. Pains been controlled. Had a reasonable night. No chest pain or shortness of breath. Hoping to go home today. Physical Exam Physical Exam: Physical nation is a pleasant middle-age male. He is sitting up in his bedside chair looks comfortable. Examination of the right leg reveals the dressing be clean dry and intact. He can dorsiflex and plantarflex his foot appropriately. He can do a good straight leg raise. No drainage on the dressing. Respiratory: normal respiratory effort, lungs clear to auscultation Cardiovascular: RRR, no murmur, no edema Gastrointestinal (Abdomen): normal bowel sounds, soft, nontender, no hepatosplenomegaly Results & Data Vital Signs (Past 12 Hours) Vital Signs Temp Pulse Resp BP BP Pulse Ox O2 Del Method 04/28/25 07:42 Room Air 04/28/25 07:10 36.5 C 79 16 122/80 93 Room Air 04/28/25 02:56 36.8 C 77 18 137/70 94 Room Air 04/27/25 22:57 87 165/73 H 04/27/25 22:53 36.6 C 94 H 18 169/74 H 96 Room Air Laboratory Results Hemoglobin is 13.8. Hematocrit is 39.4. Electrolytes are stable.
== END 2025-04-28 10:57 | disposition home health service (06) ==
LOC: 3E 05:23 → ASU 05:23

== ENCOUNTER 2025-07-28 06:44 | Observation (INO) ==
--- NOTE | 2025-07-22 10:53 | Anesthesiology Consultation ---
Date of Service July 22, 2025 Assessment & Plan (1) Encounter for pre-operative examination: Chart Review Chart Review: Acceptable Risk for Surgery and Patient NOT seen in Pre Admission Testing May consider preop ECG as previous ECG from 10/2024. Consults Requested none History Surgery Operation Date: 07/28/25 08:50 Proposed Procedures p Left Total Knee Arthroplasty - Yuval Garcia MD Height/Weight Height: 5 ft 6.5 in Weight: 90.718 kg Allergies Allergy/AdvReac Type Severity Reaction Status Date / Time Wlspmkh-JMD-NlP Reductase Allergy Intermediate Muscle Pain Verified 07/20/25 10:18 Inhibitor [Xrwnasw-Dld-Qrp Reductase Inhibitor] ezetimibe [From Zetia] AdvReac Intermediate Muscle Pain Verified 07/20/25 10:18 heparin AdvReac Unknown Edema, Verified 07/20/25 10:18 left leg swelling lisinopril AdvReac Unknown Cough Verified 07/20/25 10:18 Medications Home Medications Medication Instructions Recorded Confirmed Last Taken nitroglycerin 0.4 mg sublingual 0.4 mg sublingual .EVERY 5 MIN PRN 12/03/19 07/20/25 Unknown tablet Chest Pain amlodipine 5 mg tablet 5 mg PO QAM 09/13/23 07/20/25 04/27/25 04:30 aspirin 81 mg tablet,delayed 81 mg PO QAM 09/13/23 07/20/25 04/27/25 04:30 release cholecalciferol (vitamin D3) 10 10 mcg PO DAILY 04/06/25 07/20/25 04/26/25 09:30 mcg (400 unit) chewable tablet (Vitamin D3) tamsulosin 0.4 mg capsule (Flomax) 0.4 mg PO QAM 07/20/25 07/20/25 Unknown Past Medical History Medical History STUART (dyspnea on exertion) stairs CAD (coronary artery disease) 2011- PCI RCA with DOMENICO 2019- PCI of dRCA with DOMENICO overlapping the distal aspect of prior stent and extending into right PDA + PCI pRCA with DOMENICO Follows with [facility] Spinal stenosis Osteoarthritis GERD (gastroesophageal reflux disease) Statin intolerance Hyperlipidemia HTN (hypertension) Hx of acute myocardial infarction 2011 Past Family History Family History Mother Coronary heart disease Father Alcohol abuse Grandfather , at 65 Myocardial infarction Brother Cancer Brother , " in [facility] No problems noted. Other No pertinent family history Past Surgical History Surgical History History of total right knee replacement History of cardiac cath 2011- PCI RCA with DOMENICO 2019- PCI of dRCA with DOMENICO overlapping the distal aspect of prior stent and extending into right PDA + PCI pRCA with DOMENICO History of tooth extraction History of cataract surgery R/L History of tonsillectomy History of adenoidectomy History of colonoscopy H/O heart artery stent R TKA 04/27/25 at [facility]. Attempted SAB x3, unsuccessful so converted to GA. PNB done in preop without issue. Tolerated igel#5. Social History Smoking Status: Former smoker tobacco type: cigarettes Do You Dip or Chew Tobacco: No Smoking End Date: 12/2024-previous smoking 1 ppd x 60 years Hx Alcohol Use: Yes Alcohol type: hard liquor alcohol intake frequency: a few times a week Hx Substance Use: Yes substance use type: marijuana Substance Use Type Other:: advised Last Used Substance: Days (ago) Last Used Substance Other:: 07/16/2025 Testing Laboratory Results Laboratory Tests 07/20/25 14:11 WBC 7.36 Hgb 14.7 Hct 42.3 Plt Count 226 PT 10.8 INR 1.0 APTT 29 Sodium 138 Potassium 4.3 Chloride 103 Carbon Dioxide 26 BUN 12 Creatinine 0.98 Glucose 100 H Electrocardiogram Date: 10/21/24 Findings: + NSR @ (HR 77. ) Nonspecific T wave abnormality. Echocardiogram Date: 07/09/24 LV wall thickness is mildly increased (concentric). LV wall motion is normal. EF 55-59%. Moderate AV regurg is present Aortic root mildly enlarged 4.1cm.
[2025-07-28] MEDS ORDERED: ROPIVACAINE 0.5% 5 MG/ML 30 ML VIAL ONE (07:03)
[2025-07-28] MEDS ORDERED: MIDAZOLAM HCL 1 MG/ML 2ML VIAL ONE (07:31)
[2025-07-28] MEDS ORDERED: PROPOFOL IV EMULSION 10 MG/ML 100 ML VIAL IV ONE (07:32)
[2025-07-28] MEDS: METOCLOPRAMIDE HCL 10 MG TABLET PO SCH (07:36)
[2025-07-28] MEDS: LR 500ML BOLUS, THEN 15ML/HR IV SCH (07:36)
[2025-07-28] MEDS: dexAMETHasone**PF** 10 MG/ML VIAL IV SCH (07:36)
[2025-07-28] MEDS: CeleBREX 200 MG CAP PO SCH (07:37)
[2025-07-28] MEDS: ACETAMINOPHEN 500 MG TAB PO SCH ×2 (07:37→14:22)
[2025-07-28] MEDS: FAMOTIDINE 20 MG TAB PO SCH (07:37)
[2025-07-28] MEDS ORDERED: ATROPINE SULFATE 0.1 MG/ML 10ML SYR IV PRN (08:25)
[2025-07-28] MEDS ORDERED: ONDANSETRON INJ 2 MG/ML 2 ML VIAL IV PRN ×2 (08:25→13:32)
[2025-07-28] MEDS ORDERED: HYDROmorphone INJ 1 MG/ML SYRINGE IV PRN (08:25)
--- NOTE | 2025-07-28 09:11 | History & Physical Bridge Note ---
Date of Service July 28, 2025 History & Physical Bridge Note I have examined the patient, reviewed the History & Physical and in the interval since the performance of the History & Physical I have noted the following changes of clinical significance: no changes noted
[2025-07-28] MEDS: LR 60ML/HR IV SCH (09:28)
[2025-07-28] MEDS ORDERED: PROPOFOL IV EMULSION 10 MG/ML 20 ML VIAL IV ONE (09:42)
[2025-07-28] MEDS ORDERED: ONDANSETRON INJ 2 MG/ML 2 ML VIAL ONE (09:42)
[2025-07-28] MEDS ORDERED: DEXAMETHASONE SOD INJ 4 MG/ML VIAL ONE (09:42)
[2025-07-28] MEDS: ROPIV 0.5% 246mg, Ketorolac 30mg, EPINEPHrine 0.5mg in NSS INFIL SCH (10:07)
[2025-07-28] MEDS: ORTHO JOINT ANESTHETIC ONE (10:08)
[2025-07-28] MEDS ORDERED: HYDROmorphone INJ 2 MG/ML SYR/VIAL ONE (10:20)
--- NOTE | 2025-07-28 11:41 | Operative Report ---
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 Anesthesia Type Spinal MAC Complications none Disposition Accompanied Patient To Recovery: No Indications Patient is a 70-year-old gentleman with a long history of bilateral knee arthritis pain and discomfort. He been through extensive conservative treatments became less successful over time. He had his right knee replaced 3 months ago and is doing well with this. Continued be limited by left knee pain and discomfort. He elected proceed with left total knee arthroplasty. Description of Procedure Operative implants consist of: 1. Biomet Vanguard size 67.5 left posterior stabilized femoral component. 2. Biomet size 71 tibial tray. 3. 14 mm PS plus polyethylene insert. 4. 31 x 8 all poly patella. The patient was taken the op room, identified, placed on the operating table in the supine position. All contact areas were appropriately padded. IV antibiotics arrived by anesthesia team. A spinal anesthetic and adductor canal block had provided in the holding area. A left thigh turn was then placed. Left lower extremity was then prepped and draped in usual sterile fashion. The left leg was elevated and exsanguinated with use of an Esmarch and a tourniquet was placed at 300 mmHg. An anterior approach of the left knee was then performed through a longitudinal incision centered over the patella. Sharp dissection Through subcutaneous tissue down the extensor mechanism. A medial parapatellar arthrotomy incision was made. Some subperiosteal dissection was carried out medially. The fat pad was dissected from the patella tendon. Lateral patellofemoral ligament was released. Patella subluxated laterally and the knee was flexed. The osteophytes taken distal femur. ACL PCL were then released the distal femur and the tibia subluxate anteriorly. The external tibial LYMErix then placed on the interface the tibia and adjusted 16 mm medially. The proximal tibial cut was made remove about 2 to 3 mm of bone from medial side. The tibia was sized to a size 71. Attention drawn the femur. The distal femur was then with a sharp drill bit intramedullary canal was suction. A left 6 degree valgus cutting guide was placed. This femoral cut was made to take an additional 3 mm of bone off the distal femur. The femur was then sized to a size 67.5. The AP cutting block was pinned parallel to the epicondylar axis which was 4 degrees of external rotation. The anterior cut, anterior chamfer, posterior cut, posterior chamfer cuts were made. The box cutting guide was placed and just slightly laterally. The box cut was made. The knee was flexed. The remnants of the medial and lateral menisci were excised. The osteophytes were taken off the posterior aspect of femur. A trial femoral component was placed. The tibial tray was pinned in Kell external rotation and the drill and stem punch used great defect from proximal tibia for the tibial tray. The knee was then trialed and the 14 mm insert most appropriately. I did elect to use a PS plus insert as he had still some lateral laxity particularly in extension. Attention drawn the patella. The patella was cleaned of all soft tissue. Patella thickness measured 21 mm in thickness and was cut down to 13. Was sized to a size 31 patella. The lug holes were drilled for 31 patella. The lateral osteophyte was removed. Patella button was placed. Knee was taken through range of motion patella tracked nicely with no thumbs test. Attention then drawn to placement permanent com ponents. All trial components were removed. Bone plug was placed into distal femoral limit blood loss. Double batch [place]os G cement was mixed. Biomet I Do Now I Don'tguard size 67.5 left posterior stabilized femoral component, a size 71 tibial tray, a 14 mm PS plus insert, and a 31 x 8 all poly patella and then cemented in place. The knee was brought out into full extension till cement hardened. Final cement check was then performed. The pericapsular tissues were injected with total 100 cc of Ortho mix. The patient did receive 1 g tranexamic acid. The tourniquet was then let down for final tourniquet time 60 minutes. Hemostasis assured with electrocautery. The extensor Meclomen was then closed with combination 1 PDS suture #1 Vicryl suture in a [id number] fashion. Extensor mechanism c hecked found to be intact. Subcutaneous tissue then closed with 2 Dexon suture in a buried interrupted fashion skin was closed skin gurjit. Leg was then cleaned and dried and a sterile dressing was Xeroform, 4 fours, sterile cast padding, Rivas bandage were applied. Patient then transferred to the recovery room in stable condition. Patient tolerated the procedure well and there are no complications. Luke Ny, a physician electrician's assistant, was present for the entire procedure. His assistance was required for proper patient positioning, prepping and draping, surgical exposure, retraction, perform the technical details of the operation, placement of the hardware/implants, closure of the incision site, and placement of postoperative sterile bandage. I attest to the content of the Intraoperative Record and any orders documented therein. Any exceptions are noted below.
--- NOTE | 2025-07-28 12:06 | XRay Report ---
XR knee LT 1 or 2V routine CLINICAL HISTORY: Surgical Post Op COMPARISON: 06/10/2025 FINDINGS: Left knee prosthesis shows no hardware complication. There is expected soft tissue gas. Sk in gurjit are present. IMPRESSION: Unremarkable postoperative exam. ACT 112: Negative or not required by law. Electronically signed by: Brodie Faye M.D. 07/28/2025 12:03 PM
[2025-07-28] MEDS ORDERED: MAGNESIUM HYDROXIDE SUSP 30 ML UDC PO PRN (13:32)
[2025-07-28] MEDS ORDERED: NITROGLYCERIN SL 0.4 MG/TAB TAB SL PRN (13:32)
[2025-07-28] MEDS ORDERED: METOCLOPRAMIDE HCL INJ 5 MG/ML 2 ML VIAL IV PRN (13:32)
[2025-07-28] MEDS ORDERED: ALUMINUM/MAGNESIUM SUSP 30 ML UDC PO PRN (13:32)
[2025-07-28] MEDS ORDERED: HYDROmorphone INJ 0.5 MG/0.5 ML SYR IV PRN (13:32)
[2025-07-28] MEDS ORDERED: NALOXONE HCL 0.4 MG/1 ML VIAL/CARP IV PRN (13:32)
[2025-07-28] MEDS: SODIUM CHLORIDE 0.9% 1,000 ML IV SCH (13:35)
[2025-07-28] MEDS: KETOROLAC TROMETHAMINE 15 MG/ML VIAL IV SCH (14:22)
[2025-07-28] MEDS: TRANEXAMIC ACID / 0.7% NACL 1,000 MG/100 ML BAG IV SCH (17:25)
[2025-07-28] MEDS: ASCORBIC ACID 500 MG TAB PO SCH (17:25)
[2025-07-28] MEDS ORDERED: SENNA 8.6 MG TAB PO SCH (21:00)
[2025-07-28] MEDS: DOCUSATE SODIUM 100 MG CAP PO SCH (21:39)
[2025-07-28] MEDS: SENNA 8.6 MG TAB PO SCH (21:39)
[2025-07-28] MEDS: ASPIRIN 81 MG ECTAB PO SCH (21:39)
[2025-07-29 07:32] LABS: Hematocrit (blood only) 38.4 % (42.0-52.0); Hemoglobin 13.4 g/dl (14.0-18.0); Mean Corpuscular Hemoglobin 32.7 pg (25.0-34.0); Mean Corpuscular Volume 93.7 fL (80.0-100.0); Platelet Count 203 K/uL (130-400); RDW Standard Deviation 45.9 fL (36.4-46.3); Red Blood Count 4.10 M/uL (4.70-6.10); White Blood Count 16.13 K/ul (4.8-10.8)
[2025-07-29 07:47] VITALS: BP 149/74; PULSE 84; RESP 16; TEMP 98.1; O2SAT 95
[2025-07-29 07:47] LABS: Anion Gap 11.0 (3-11); Blood Urea Nitrogen 18.0 mg/dl (6-23); Calcium 8.9 mg/dl (8.6-10.3); Carbon Dioxide 22.0 mmol/L (21-32); Chloride 103.0 mmol/L (98-107); Creatinine Clr Calc Pharmacy 63.7 ml/min; Glucose 131.0 mg/dl (70-99(Fasting)); Potassium 4.4 mmol/L (3.5-5.1); Sodium 136.0 mmol/L (136-145)
[2025-07-29] MEDS: CHOLECALCIFEROL 10 MCG (400 UNITS) TAB PO SCH (07:54)
[2025-07-29] MEDS: MULTIVITAMIN TAB PO SCH (07:54)
[2025-07-29] MEDS: TAMSULOSIN HCL 0.4 MG CAP PO SCH (07:54)
--- NOTE | 2025-07-29 08:33 | Orthopedic Progress Note ---
Date of Service July 29, 2025 Assessment & Plan (1) Status post total left knee replacement: * Continue Current Treatment * Disposition: home * Daily treatment: Physical Therapy/ Occupational Therapy per protocol * Weight bearing status: WBAT * Continue to monitor for ABLA * Pain control * DVT prophylaxis, ASA * Office/hospital f/u 2 weeks for progress check and staple/suture removal * Plan for discharge today pending PT/OT clearance Subjective . Active Problems: S/p left TKA POD 1 70 y/o male s/p left TKA. Doing well overall, pain managed and improved function. Denies fever/chills, chest pain/SOB, nausea/vomiting. Otherwise no complaints. Review of Systems All systems reviewed & are unremarkable except as noted in HPI & below. Physical Exam . * General: Alert and oriented, no acute distress * Constitutional: well-developed, well-nourished. * Respiratory: Normal respiratory effort, no distress * Gastrointestinal: No tenderness to palpation, no rigidity or guarding. * Skin: No rash or lesion. * Neurologic: Grossly normal * Musculoskeletal: Left knee surgical dressing CDI, not removed for exam. Otherwise no obvious deformity or overlying skin changes RLE. Diffuse TTP distal thigh and knee region. Otherwise no specific tenderness of proximal thigh, lower leg, foot/ankle. AROM knee flexion 90 degrees. AROM foot/ankle intact. Sensation intact plantar/dorsal foot. Brisk capillary refill. Results & Data Results & Data Laboratory Results . Diagnostic Findings . Knee X-Ray 07/28/25 11:35 XR knee LT 1 or 2V routine CLINICAL HISTORY: Surgical Post Op COMPARISON: 06/10/2025 FINDINGS: Left knee prosthesis shows no hardware complication. There is expected soft tissue gas. Skin gurjit are present. IMPRESSION: Unremarkable postoperative exam. ACT 112: Negative or not required by law. Electronically signed by: Brodie Faye M.D. 07/28/2025 12:03 PM [facility] Care Time/CCT Total # of Minutes Spent Total Time Spent with Patient: Total time spent is greater than 50% in coordination of care (as documented) at patient's floor/unit and/or counseling patient: Coding Level of Care Code 35411 Post Operative Follow-Up Diagnoses Status post total left knee replacement Z96.652
[2025-07-29] MEDS: dexAMETHasone 10 MG in SYRINGE 0 ML IV SCH (08:49)
== END 2025-07-29 10:59 | disposition home health service (06) ==
LOC: 3N 06:44 → ASU 06:44